=== PATIENT | male | born 1955 | race Caucasian/White ===

== ENCOUNTER → 2024-09-07 10:21 | Outpatient (REF) | payer MEDICARE, SELFPAY | LOC: HWRAD 10:21 | PROVIDERS: ATTENDING PHYSICIAN Internal Medicine Cardiovascular Disease; FAMILY PHYSICIAN Family Medicine | DX: Z87.891 Personal history of nicotine dependence (principal) | CPT/HCPCS: 76770 ==

== ENCOUNTER → 2024-09-17 08:47 | Outpatient (REF) | payer MEDICARE, SELFPAY | LOC: HWRCS 08:47 | PROVIDERS: ATTENDING PHYSICIAN Internal Medicine Cardiovascular Disease; FAMILY PHYSICIAN Family Medicine | DX: R06.02 Shortness of breath (principal) | CPT/HCPCS: 93306 ==

== ENCOUNTER → 2024-09-20 11:08 | Outpatient (REF) | payer MEDICARE, SELFPAY | LOC: HWRCS 11:08 | PROVIDERS: ATTENDING PHYSICIAN Internal Medicine Cardiovascular Disease; FAMILY PHYSICIAN Family Medicine | DX: R06.02 Shortness of breath (principal) | CPT/HCPCS: 78452; 93017; A9500 ==